=== PATIENT | male | born 1985 | race Two or more races ===

== ENCOUNTER 2021-07-14 18:11 | Emergency (ER) | payer OTHER ==
[~2021-07-14] VITALS: Ht 160 cm; Wt 56.7 kg
[2021-07-14] MEDS ORDERED: EMTR1TAB17 PO (18:40)
--- NOTE | 2021-07-14 18:41 | NUR ---
feels sick after the second dose of [employer] covid vaccine.
[2021-07-14] MEDS ORDERED: HYDR-500 PO (19:01)
[2021-07-14 19:25] VITALS: BP 137/80
--- NOTE | 2021-07-14 19:25 | NUR ---
Patient discharged to home in stable condition. Written and verbal after care instructions given. Patient verbalizes understanding of instruction.
== END 2021-07-14 19:26 | disposition home or self-care (01) ==
LOC: ER 18:18
DX: F41.9 Anxiety disorder, unspecified (principal); Z86.16 Personal history of COVID-19; Z88.0 Allergy status to penicillin; Z79.899 Other long term (current) drug therapy